=== PATIENT | female | born 1990 | race African-American/Black ===

== ENCOUNTER 2021-02-01 18:19 | Emergency (ER) | payer MEDICAID, OTHER ==
[~2021-02-01] VITALS: Ht 160 cm; Wt 122.5 kg
[2021-02-01 22:00] VITALS: BP 132/74
[2021-02-01] MEDS ORDERED: KETOROLAC TROMETH 60MG/2ML VIAL IM ONE (22:30)
[2021-02-01] MEDS ORDERED: methylPREDNISolone SOD SUCC 125 MG/2 ML VL IM ONE (22:30)
== END 2021-02-01 22:53 | disposition home or self-care (01) ==
LOC: ER 18:21
DX: L02.411 Cutaneous abscess of right axilla (principal); E66.9 Obesity, unspecified; Z68.42 Body mass index [BMI] 45.0-49.9, adult
CPT/HCPCS: 96372; 99284; J1885; J2930